=== PATIENT | female | born 1995 | race Caucasian/White ===

== ENCOUNTER 2022-12-09 20:08 | Emergency (ER) | payer OTHER ==
[2022-12-09 20:14] VITALS: BP 117/77; PULSE 86; RESP 17; TEMP 98; BMI 24.7
[2022-12-09 20:53] LABS: EPI CELLS 14 /uL (0-25.1); HYALINE CASTS 1 /uL (0-3.1); PH,URINE 5.5 (5.0-8.0); URINE APPEARANCE CLEAR; URINE BACTERIA 6167 /uL (0-1359); URINE BILIRUBIN NEGATIVE (NEGATIVE); URINE COLOR YELLOW; URINE GLUCOSE (UA) NEGATIVE (NEGATIVE); URINE KETONE 1+ (NEGATIVE); URINE LEUK ESTERASE 2+ (NEGATIVE); URINE NITRITE POSITIVE (NEGATIVE); URINE PROTEIN 1+ (NEGATIVE); URINE RBC 63 /uL (0-23.9); URINE WBC 1702 /uL (0-25.8)
[2022-12-09] MEDS ORDERED: NITROFURANTOIN MACROCRYSTAL 50 MG CAPSULE (FP) PO SCH (21:15)
[2022-12-09] MEDS ORDERED: PHENAZOPYRIDINE HCL 100 MG TABLET (FP) PO ONE (21:15)
[2022-12-09] MEDS ORDERED: NITROFURANTOIN MACROCRYSTAL 50 MG CAPSULE (FP) ONE (21:23)
[2022-12-09] MEDS ORDERED: PHENAZOPYRIDINE HCL 100 MG TABLET (FP) ONE (21:23)
[2022-12-09 21:25] LABS: HCG,QUALITATIVE URINE Negative
== END 2022-12-09 21:26 | disposition home or self-care (01) ==
LOC: JERFT 20:08 → JER 20:08 → JERFT 21:26
DX: N30.01 Acute cystitis with hematuria (principal); R30.0 Dysuria; R35.0 Frequency of micturition; R39.15 Urgency of urination; R10.30 Lower abdominal pain, unspecified
CPT/HCPCS: 81003; 84703; 87086; 87186; 99283-25